=== PATIENT | female | born 1990 | race African-American/Black ===

== ENCOUNTER 2017-04-03 18:14 | Emergency (ER) | payer MEDICAID ==
[~2017-04-03] VITALS: Ht 170.2 cm; Wt 105.0 kg
[~2017-04-03 18:14] MED LIST: ALBU6.7H2 IH
[2017-04-03 20:55] VITALS: BP 116/61
[2017-04-03 21:52] LABS: CLARITY URINE CLEAR (CLEAR); COLOR URINE YELLOW (YELLOW); GLUCOSE URINE NEGATIVE (NEGATIVE); KETONES URINE NEGATIVE (NEGATIVE); LEUKOCYTE ESTERASE URINE NEGATIVE (NEGATIVE); NITRITE URINE NEGATIVE (NEGATIVE); OCCULT BLOOD URINE NEGATIVE (NEGATIVE); PH URINE 5.5 (4.5-8.0); PROTEIN URINE NEGATIVE (NEGATIVE); SPECIFIC GRAVITY URINE 1.008 (1.005-1.030); UROBILINOGEN URINE 0.2 E.U./dL (0.2-1.0)
== END 2017-04-03 22:28 | disposition home or self-care (01) ==
LOC: ER 18:14
DX: K52.9 Noninfective gastroenteritis and colitis, unspecified (principal); J45.909 Unspecified asthma, uncomplicated; F17.210 Nicotine dependence, cigarettes, uncomplicated
CPT/HCPCS: 81003; 81025; 99283

== ENCOUNTER 2024-10-01 01:01 | Emergency (ER) | payer MEDICAID ==
[~2024-10-01] VITALS: Ht 177.8 cm; Wt 101.0 kg
[~2024-10-01 01:01] MED LIST changes: -ALBU6.7H2 IH; +ALBU6.7H3 IH
[2024-10-01 01:05] VITALS: TEMP 97.9; O2SAT 97
[2024-10-01 02:00] VITALS: BP 125/72; PULSE 112; RESP 16
[2024-10-01] MEDS: KETOROLAC 15MG/ML VIAL IM ONE (02:00)
[2024-10-01] MEDS ORDERED: LIDO700A15 TP (03:14)
[2024-10-01] MEDS ORDERED: NAPR-1176 MT (03:14)
== END 2024-10-01 03:45 | disposition home or self-care (01) ==
LOC: ER 01:11
DX: S09.90XA Unspecified injury of head, initial encounter (principal); J45.909 Unspecified asthma, uncomplicated; Y08.89XA Assault by other specified means, initial encounter; Y93.89 Activity, other specified; Y92.89 Other specified places as the place of occurrence of the external cause; Y99.8 Other external cause status
CPT/HCPCS: 99285; 70450; 81025; 70486; 96372; J1885